=== PATIENT | male | born 1965 | race Caucasian/White ===

== ENCOUNTER 2020-10-23 19:47 | Emergency (ER) | payer BC ==
[~2020-10-23] VITALS: Ht 177.8 cm; Wt 99.8 kg
[2020-10-23] MEDS ORDERED: TETANUS/DIPHTHERIA TOX ADULT 0.5 ML SYR IM ONE (21:00)
[2020-10-23] MEDS ORDERED: SILVER NITRATE SWABS ONE (21:06)
[2020-10-23] MEDS ORDERED: TETANUS/DIPHTHERIA TOX ADULT 0.5 ML SYR ONE (21:06)
== END 2020-10-23 21:05 | disposition home or self-care (01) ==
LOC: FSED 19:48
DX: S61.216A Laceration without foreign body of right little finger without damage to nail, initial encounter (principal); W45.8XXA Other foreign body or object entering through skin, initial encounter; Y92.008 Other place in unspecified non-institutional (private) residence as the place of occurrence of the external cause
CPT/HCPCS: 90471; 90714; 99283